=== PATIENT | female | born 1985 | race Caucasian/White ===

== ENCOUNTER 2020-04-17 11:17 | Emergency (ER) | payer OTHER, MEDICAID, SELFPAY ==
[2020-04-17 11:20] VITALS: BP 129/72; PULSE 79; RESP 14; TEMP 37; O2SAT 99; BMI 24.5
[2020-04-17 11:31] VITALS: PULSE 84; O2SAT 99
--- NOTE | 2020-04-17 11:36 | ED_ITS ---
HPI - Abdominal Pain General Chief Complaint: Abdominal Pain Stated Complaint: severe left lower back/across abd/fatigue x3days Time Seen by Provider: 04/17/20 11:20 Source: patient Mode of arrival: Ambulatory Limitations: no limitations History of Present Illness HPI narrative: Patient is a 34-year-old female with no past medical history presenting with of left back pain. She says it is not radiating around her abdomen or to her leg. However she is feeling like she is having some lower abdominal pain and bloating as well. She just had her menstrual cycle does not feel like it is related to that. She has been nauseous at times but no vomiting no fever. No prior history of kidney stones. She denies any urinary frequency or dysuria. She states she took ibuprofen 2 days ago without any relief. She says is quite painful. She says she has had normal bowel movements no bloody stools. MD complaint: abdominal pain Onset (ago): day(s) (3) Pain Consistency: constant Quality: stabbing Related Data Home Medications Medication Instructions Recorded Confirmed VIT#96/FERROUS FUM/FA 1 tab PO Q DAY #0 12/17/10 ( Tablet) Previous Rx's Medication Instructions Recorded ciprofloxacin HCl [Cipro] 500 mg PO BID #14 tab 04/17/20 metronidazole [Flagyl] 500 mg PO Q8H #21 tab 04/17/20 Allergies Allergy/AdvReac Type Severity Reaction Status Date / Time acetaminophen [From Tylenol] Allergy Verified 04/17/20 11:25 Review of Systems Review of Systems Narrative: GENERAL: Denies chills, fatigue, malaise, fever, sweats, travel HEENT: Denies sinus pain, ear pain, sore throat, difficulty swallowing, neck pain RESPIRATORY: Denies dyspnea, cough, wheezing, hemoptysis, sputum. CARDIOVASCULAR: Denies chest pain, palpitations, orthopnea, edema GASTROINTESTINAL: See HPI : Denies dysuria, frequency, incontinence, hematuria, urinary retention, flank pain. MUSCULOSKELETAL: Denies weakness, joint pain, or bony pain SKIN: No rash, no erythema, no pruritus NEUROLOGIC: Denies weakness, dizziness, headache, numbness, change in speech, confusion PSYCHIATRIC: No concerning psychosocial issues. 12 point review of systems is negative except for those stated above and HPI Patient History Medical History Patient denies medical problems Social History Smoking Status: Unknown if ever smoked Smoking Status: Unknown if ever smoked alcohol intake frequency: holidays/special occasions only Substance Use Type: does not use Exam Initial Vital Signs Initial Vital Signs: Vital Signs Temperature 98.6 F 04/17/20 11:20 Pulse Rate 79 04/17/20 11:20 Respiratory Rate 14 04/17/20 11:20 Blood Pressure 129/72 04/17/20 11:20 Pulse Oximetry 99 04/17/20 11:20 GENERAL: Well-appearing, well-nourished and in no acute distress. HEENT: Head atraumatic,EOMI, pupils reactive, face symmetric, moist mucous membranes CARDIOVASCULAR: Regular rate and rhythm without murmurs, rubs or gallops. RESPIRATORY: Breath sounds equal bilaterally, no wheezes rales or rhonchi. ABDOMEN: Soft, mild left lower quadrant pain. Normoactive bowel sounds all 4 quadrants. No guarding or rebound. : Mild left CVA tenderness EXTREMITIES: Normal range of motion, no clubbing or edema. Neurovascularly intact NEUROLOGICAL: Alert and oriented x4.Normal gait and speech. SKIN: Warm, dry, no laceration, no petechiae, no rashes or lesions. Course Orders Ordered: ED Orders 04/17/20 11:25 Complete Blood Count AUTO DIFF Stat Comprehensive Metabolic Panel Stat Lipase Stat Partial Thromboplastin Time Stat Prothrombin Time INR Stat 04/17/20 11:37 CT abdomen pelvis w con Stat Discontinued Medications Ketorolac Tromethamine (Ketorolac 60 Mg/2 Ml Vial) 30 mg IV NOW ONE Stop: 04/17/20 11:38 Last Admin: 04/17/20 11:51 Dose: 30 mg Documented by: [email or web address] Vital Signs Vital signs: Vital Signs - 8 hr 04/17/20 12:20 04/17/20 12:30 Pulse Rate 89 70 Blood Pressure 118/58 L 115/59 L Pulse Oximetry 96 99 MDM - Abdominal Pain Lab Data Attestation: I reviewed the patient's lab results. Result diagrams: 04/17/20 11:25 04/17/20 11:25 Labs: Lab Results 04/17/20 04/17/20 04/17/20 Range/Units 11:25 11:25 11:25 WBC 6.7 (4.5-11.0) X10^3/uL RBC 4.75 (4.0-5.2) X10^6/uL Hgb 13.9 (12.0-16.0) g/dL Hct 41.9 (36-46) % MCV 88.3 (80-100) fL MCH 29.3 (26-34) PG MCHC 33.2 (30-36) % RDW 13.0 (11.6-14.8) % Plt Count 245 (150-400) X10^3/uL Neut % (Auto) 57.1 (50-75) % Lymph % (Auto) 28.4 (25-40) % [place] % (Auto) 11.6 (3-14) % Eos % (Auto) 2.5 (2-4) % Baso % (Auto) 0.4 (0-2) % Neut # (Auto) 3800 (8836-1213) /uL Lymph # (Auto) 1900 (0245-4481) /uL [place] # (Auto) 800 (0-900) /uL Eos # (Auto) 200 (0-450) /uL Baso # (Auto) 0 (0-100) /uL PT 11.6 (10.1-12.7) SECONDS INR 1.0 (0.9-1.3) APTT 32 (26.4-36.2) SECONDS Sodium 137 (137-145) mmol/L Potassium 4.6 (3.4-5.1) mmol/L Chloride 103 (98-107) mmol/L Carbon Dioxide 27 (22-32) mmol/L BUN 11 (7-17) mg/dL Creatinine 0.71 (0.52-1.04) mg/dL Estimated GFR > 60.0 (>60) mL/min BUN/Creatinine Ratio 15.5 (6-22) Glucose 99 (70-100) mg/dL Calcium 9.7 (8.4-10.2) mg/dL Total Bilirubin 0.5 (0.2-1.3) mg/dL AST 55 H (14-36) IU/L ALT 44 H (<35) IU/L Alkaline Phosphatase 49 (38-126) U/L Total Protein 8.8 H (6.3-8.2) g/dL Albumin 4.9 (3.5-5.0) g/dL Globulin 3.9 (1.7-4.1) g/dL Albumin/Globulin Ratio 1.3 (1.0-2.8) Lipase 70 (23-300) U/L Point of care testing: Point of Care Testing Test Results Negative Urine Dip Bedside Urine Glucose Negative Bedside Urine Bilirubin - Negative Bedside Urine Ketone - Negative Urine Specific [place] 1.010 Bedside Urine Occult Blood - Negative Bedside Urine pH 6 Bedside Urine Protein - Negative Bedside Urine Urobilinogen - Negative Bedside Urine Nitrite - Negative Bedside Urine Leukocytes - Negative Esterase Imaging Data CT scan - abdomen/pelvis: Radiologist's Impression: PROCEDURE: CT ABDOMEN PELVIS W CON INDICATIONS: LLq pain TECHNIQUE: After the administration of intravenous contrast, 5 mm thick sections acquired from the diaphragm to the symphysis. 5 mm coronal and sagittal reformats were acquired. For radiation dose reduction, the following was used: automated exposure control, adjustment of mA and/or kV according to patient size. COMPARISON: None. FINDINGS: Image quality: Excellent. ABDOMEN: Lung bases: Lung bases are clear. Heart size is normal. Solid organs: Liver is normal in size and enhancement. Gallbladder is within normal limits. Biliary system is non dilated. Pancreas enhances normally. Spleen is normal in size and enhancement. No adrenal nodules. Kidneys demonstrate normal size and enhancement, without hydronephrosis. Peritoneum and bowel: There is no evidence of bowel obstruction. There is suggestion of diffuse descending colon wall thickening and edema with minimal pericolonic fat stranding. Appendix is visualized and is within normal limits. No peritoneal free fluid or free air. No abscess collection. Nodes and vessels: No retroperitoneal or mesenteric adenopathy by size criteria. Aorta and inferior vena cava are normal in size. Miscellaneous: No ventral hernias. PELVIS: Genitourinary: Bladder wall thickness is normal. Intrauterine device is noted within uterus. Suggestion of a right ovarian cyst is seen measures 2.3 cm in size. Miscellaneous: No inguinal hernias or adenopathy. Bones: No suspicious bony lesions. No vertebral body compression fractures. IMPRESSION: 1. Finding is suggestive of left-sided colitis involving descending colon. No evidence of acute appendicitis or diverticulitis. No free fluid or free air. No abscess collection. 2. Intrauterine device in place. 2.2 cm right ovarian cyst. Dictated by: Norman Oconnor M.D. on 04/17/2020 at 12:24 MDM Narrative Medical decision making narrative: At this time patient well no significant leukocytosis or fever. Discussed possibly waiting a couple days on antibiotics before starting them to see if she improves without them. He is agreeable to this will write her prescriptions for Cipro and Flagyl. Discharge Plan Departure Patient Disposition: Home Clinical Impression: Colitis Instructions: DI for Colitis Activity Restrictions/Additional Instructions: *You have been diagnosed with colitis *What to do: At this time he may hold off for a day or 2 on the antibiotics to see if her symptoms improve. If symptoms are not improving recommend starting antibiotics. I also recommend decreasing your fiber over the next few days until symptoms improve and then returning to your regular diet as symptoms in for *Continue to take medications as directed Cipro 500 mg twice a day for 7 days Flagyl 500 mg 3 times a day for 7 days Ibuprofen 800 mg every 8 hours if needed for [id number] pain *Follow up with your primary care provider in 2-3 days *Return to ER if you should have intense severe pain, nausea, vomiting, bloody stools, fever or any new, worsening or concerning symptoms Prescriptions: New ciprofloxacin HCl [Cipro] 500 mg tablet 500 mg PO BID Qty: 14 RF: 0 metronidazole [Flagyl] 500 mg tablet 500 mg PO Q8H Qty: 21 RF: 0 No Action VIT#96/FERROUS FUM/FA ( Tablet) 1 tab PO Q DAY Qty: 0 RF: 0 Referrals: Stefani Jay ARNP [Primary Care Provider] -
[2020-04-17 11:37] LABS: Add Manual Diff / Slide Review NO; Basophils Absolute Auto 0 /uL (0-100); Basophils Percent Auto 0.4 % (0-2); Eosinophils Absolute Auto 200 /uL (0-450); Eosinophils Percent Auto 2.5 % (2-4); Hematocrit 41.9 % (36-46); Hemoglobin 13.9 g/dL (12.0-16.0); Lymphocytes Absolute Auto 1900 /uL (1100-4500); Lymphocytes Percent Auto 28.4 % (25-40); Mean Corpuscular HGB Conc 33.2 % (30-36); Mean Corpuscular Hemoglobin 29.3 PG (26-34); Mean Corpuscular Volume 88.3 fL (80-100); Monocytes Absolute Auto 800 /uL (0-900); Monocytes Percent Auto 11.6 % (3-14); Neutrophils Absolute Auto 3800 /uL (1500-7000); Neutrophils Percent Auto 57.1 % (50-75); Platelet Count 245 X10^3/uL (150-400); Red Blood Cell Count 4.75 X10^6/uL (4.0-5.2); White Blood Cell Count 6.7 X10^3/uL (4.5-11.0)
[2020-04-17 11:48] LABS: Prothrombin Time 11.6 SECONDS (10.1-12.7)
[2020-04-17 11:50] VITALS: BP 129/54; PULSE 77; O2SAT 99
[2020-04-17 11:50] LABS: Alanine Aminotransferase 44 IU/L (<35); Albumin 4.9 g/dL (3.5-5.0); Albumin Globulin Ratio 1.3 (1.0-2.8); Alkaline Phosphatase 49 U/L (38-126); Aspartate Aminotransferase 55 IU/L (14-36); BUN Creatinine Ratio 15.5 (6-22); Bilirubin Total 0.5 mg/dL (0.2-1.3); Blood Urea Nitrogen 11 mg/dL (7-17); Calcium 9.7 mg/dL (8.4-10.2); Carbon Dioxide 27 mmol/L (22-32); Chloride 103 mmol/L (98-107); Estimated Glomerular Filt Rate > 60.0 mL/min (>60); Globulin 3.9 g/dL (1.7-4.1); Glucose 99 mg/dL (70-100); HEMOLYSIS 59 (0-50); Lipase 70 U/L (23-300); Potassium 4.6 mmol/L (3.4-5.1); Sodium 137 mmol/L (137-145); Total Protein 8.8 g/dL (6.3-8.2)
[2020-04-17 11:51] LABS: PTT Partial Thromboplastin Tim 32 SECONDS (26.4-36.2)
[2020-04-17] MEDS: KETOROLAC 60 MG/2 ML VIAL 30 MG IV (11:51)
[2020-04-17 12:00] VITALS: BP 120/58; PULSE 76; O2SAT 98
[2020-04-17 12:20] VITALS: BP 118/58; PULSE 89; O2SAT 96
[2020-04-17 12:30] VITALS: BP 115/59; PULSE 70; O2SAT 99
== END 2020-04-17 13:13 | disposition home or self-care (01) ==
PROVIDERS: Emergency Provider Emergency Medicine; Family Provider Obstetrics & Gynecology; PCP Nurse Practitioner
DX: K52.9 Noninfective gastroenteritis and colitis, unspecified (principal); R10.32 Left lower quadrant pain
CPT/HCPCS: 36415; 74177; 80053; 81003; 81025; 83690; 85025; 85610; 85730; 96374; 99281; 99284; J1885

== ENCOUNTER → 2020-05-17 12:55 | Outpatient (CLI) | payer OTHER, MEDICAID, SELFPAY ==
[2020-05-17 13:34] LABS: Add Manual Diff / Slide Review NO; Basophils Absolute Auto 100 /uL (0-100); Basophils Percent Auto 0.6 % (0-2); Eosinophils Absolute Auto 200 /uL (0-450); Eosinophils Percent Auto 2.4 % (2-4); Hematocrit 39.1 % (36-46); Hemoglobin 13.2 g/dL (12.0-16.0); Lymphocytes Absolute Auto 2300 /uL (1100-4500); Lymphocytes Percent Auto 26.5 % (25-40); Mean Corpuscular HGB Conc 33.7 % (30-36); Mean Corpuscular Hemoglobin 29.6 PG (26-34); Mean Corpuscular Volume 87.8 fL (80-100); Monocytes Absolute Auto 800 /uL (0-900); Monocytes Percent Auto 9.4 % (3-14); Neutrophils Absolute Auto 5200 /uL (1500-7000); Neutrophils Percent Auto 61.1 % (50-75); Platelet Count 252 X10^3/uL (150-400); Red Blood Cell Count 4.46 X10^6/uL (4.0-5.2); Red Cell Distribution Width 13.1 % (11.6-14.8); White Blood Cell Count 8.5 X10^3/uL (4.5-11.0)
[2020-05-17 14:04] LABS: Alanine Aminotransferase 40 IU/L (<35); Albumin 4.7 g/dL (3.5-5.0); Albumin Globulin Ratio 1.6 (1.0-2.8); Alkaline Phosphatase 50 U/L (38-126); Aspartate Aminotransferase 45 IU/L (14-36); BUN Creatinine Ratio 16.2 (6-22); Bilirubin Total 0.3 mg/dL (0.2-1.3); Blood Urea Nitrogen 12 mg/dL (7-17); Calcium 9.6 mg/dL (8.4-10.2); Carbon Dioxide 22 mmol/L (22-32); Chloride 105 mmol/L (98-107); Estimated Glomerular Filt Rate > 60.0 mL/min (>60); Glucose 75 mg/dL (70-100); HEMOLYSIS < 15 (0-50); Potassium 3.9 mmol/L (3.4-5.1); Sodium 139 mmol/L (137-145); Total Protein 7.7 g/dL (6.3-8.2)
== END ==
PROVIDERS: Family Provider Obstetrics & Gynecology; PCP Nurse Practitioner; Referring Provider Physician Assistant; Visit Provider Physician Assistant
DX: K62.5 Hemorrhage of anus and rectum (principal)
CPT/HCPCS: 36415; 80053; 85025

== ENCOUNTER 2021-03-26 18:52 | Emergency (ER) | payer OTHER, MEDICAID, SELFPAY ==
[2021-03-26 19:08] VITALS: BP 136/73; PULSE 91; RESP 20; TEMP 37.1; O2SAT 100
--- NOTE | 2021-03-26 19:35 | ED.URI ---
HPI - URI/Sore Throat <DAVIAN Noonan - Last Filed: 03/26/21 20:24> General Chief Complaint: Upper Respiratory Symptoms Stated Complaint: COVID POSITIVE DEHYDRATION VERY ILL Time Seen by Provider: 03/26/21 19:25 Source: patient Mode of arrival: Ambulatory History of Present Illness HPI Narrative: 35-year-old female unvaccinated for COVID, who tested COVID x3 days presents to the emergency department complaining that she cannot speak, swallow, breathe, drink water due to her pain in her throat. Patient is tearful, states she is very ill in very dehydrated. She denies any fever, nausea vomiting, diarrhea, chest pain, shortness of breath, wheezing, or other symptom. Patient is communicating via typing on her cellphone. She states that 48 hours ago her throat started to hurt and it has become so severe she is concerned that she can not breathe. No audible stridor, patient is refusing to speak, she will whisper and then states is too painful to talk and starts crying. Related Data Home Medications Medication Instructions Recorded Confirmed VIT#96/FERROUS FUM/FA 1 tab PO Q DAY #0 12/17/10 ( Tablet) Previous Rx's Medication Instructions Recorded ciprofloxacin HCl 500 mg tablet 500 mg PO BID #14 tab 04/17/20 (Cipro) metronidazole 500 mg tablet 500 mg PO Q8H #21 tab 04/17/20 (Flagyl) Allergies Allergy/AdvReac Type Severity Reaction Status Date / Time acetaminophen [From Tylenol] Allergy Verified 04/17/20 11:25 Review of Systems <DAVIAN Noonan - Last Filed: 03/26/21 20:24> Review of Systems Narrative: General: denies fever, chills, malaise, sweats, fatigue Head/Neck: denies headache, neck pain, dizziness, endorses sore throat Eyes: denies visual changes, eye pain Cardio: denies chest pain, palpitations, edema Respiratory: denies dyspnea, cough, orthopnea GI: denies abdominal pain, nausea, vomiting, or diarrhea : denies dysuria, hematuria, urinary retention, frequency or incontinence MSK: denies joint pain, muscle weakness Skin: denies rash, itching, skin lesions or other Neuro: denies numbness, tingling Patient History <DAVIAN Noonan - Last Filed: 03/26/21 20:24> Medical History Patient denies medical problems Social History Smoking Status: Unknown if ever smoked Smoking Status: Unknown if ever smoked alcohol intake frequency: holidays/special occasions only Substance Use Type: does not use Exam <DAVIAN Noonan - Last Filed: 03/26/21 20:24> Narrative Exam Narrative: Independently reviewed vitals signs and nursing notes. General: Cooperative, comfortable, in no acute distress, well developed and well groomed Head/Neck: Normal visual inspection and supple, atraumatic, no JVD or lymphadenopathy. Normal facial exam Eyes: Pupils equal round and reactive, EOMI, conjunctiva normal, no scleral icterus or injections Nose: External nose normal, nares patent, no rhinorrhea, without purulent drainage Mouth/Throat: uvula midline, moist mucus membranes, posterior pharynx is not erythematous, no tonsillar adenopathy, no exudate, lesions, vesicles. Mild cobblestoning noted to posterior pharynx and postnasal drip Cardio: Regular rate and rhythm, no peripheral edema, warm extremities Respiratory: Normal respiratory effort, able to speak in complete sentences without audible wheezing, stridor, or rales. No retractions. Breath sounds clear in all serrato GI: Abdomen soft, nontender to palpation x4 quadrants, nondistended, no masses or exquisite tenderness with exam, no flank tenderness MSK: Moves all extremities, neurovascularly intact Skin: Normal capillary refill, no rash Neuro: Normal speech and cognition, normal gait, A&O x3, tone normal, moves all extremities Psych: Mental status is grossly normal, speech is clear, congruent mood, normal affect Initial Vital Signs Initial Vital Signs: Vital Signs Temperature 98.7 F 03/26/21 19:08 Pulse Rate 91 H 03/26/21 19:08 Respiratory Rate 20 03/26/21 19:08 Blood Pressure 136/73 03/26/21 19:08 Pulse Oximetry 100 03/26/21 19:08 <Syed Hugo DO - Last Filed: 03/27/21 07:07> Initial Vital Signs Initial Vital Signs: Vital Signs Temperature 98.7 F 03/26/21 19:08 Pulse Rate 91 H 03/26/21 19:08 Respiratory Rate 20 03/26/21 19:08 Blood Pressure 136/73 03/26/21 19:08 Pulse Oximetry 100 03/26/21 19:08 Course <BILL NoonanP - Last Filed: 03/26/21 20:24> Orders Ordered: Discontinued Medications Dexamethasone (Dexamethasone 10 Mg/Ml Vial) 10 mg PO NOW ONE Stop: 03/26/21 19:34 Last Admin: 03/26/21 19:56 Dose: 10 mg Documented by: [email or web address] Ibuprofen (Ibuprofen Susp 100 Mg/5 Ml Udc) 600 mg PO NOW ONE Stop: 03/26/21 19:35 Last Admin: 03/26/21 19:56 Dose: 600 mg Documented by: [email or web address] Lidocaine HCl (Lidocaine Viscous 2% 15 Ml Solution) 15 ml PO NOW ONE Stop: 03/26/21 19:36 Last Admin: 03/26/21 19:57 Dose: 15 ml Documented by: [email or web address] Vital Signs Vital signs: Vital Signs - 8 hr 03/26/21 19:08 Temperature 98.7 F Pulse Rate 91 H Respiratory Rate 20 Blood Pressure 136/73 Pulse Oximetry 100 <Syed Hugo DO - Last Filed: 03/27/21 07:07> Orders Ordered: Discontinued Medications Dexamethasone (Dexamethasone 10 Mg/Ml Vial) 10 mg PO NOW ONE Stop: 03/26/21 19:34 Last Admin: 03/26/21 19:56 Dose: 10 mg Documented by: [email or web address] Ibuprofen (Ibuprofen Susp 100 Mg/5 Ml Udc) 600 mg PO NOW ONE Stop: 03/26/21 19:35 Last Admin: 03/26/21 19:56 Dose: 600 mg Documented by: [email or web address] Lidocaine HCl (Lidocaine Viscous 2% 15 Ml Solution) 15 ml PO NOW ONE Stop: 03/26/21 19:36 Last Admin: 03/26/21 19:57 Dose: 15 ml Documented by: [email or web address] Vital Signs Vital signs: Vital Signs - 8 hr 03/26/21 19:08 Temperature 98.7 F Pulse Rate 91 H Respiratory Rate 20 Blood Pressure 136/73 Pulse Oximetry 100 MDM - URI/Sore Throat <Brittany Jade, [facility] - Last Filed: 03/26/21 20:24> [facility] Narrative Medical decision making narrative: 35-year-old female presents to the emergency department complaining of sore throat, worst of her life, she states she cannot breathe, swallow, drink water, or eat food due to the pain. Patient is COVID positive, symptoms started 3 days ago, she said for 48 hours her throat has been very painful and she has not been able to drink water or eat food. She has taken liquid ibuprofen twice today and tolerated that well. Patient does not have a fever, no nausea vomiting, no stridor, breath sounds are clear times all lobes, posterior pharynx without erythema or edema, uvula midline, no exudate, mild postnasal drip noted. Patient was given viscous lidocaine, she gargled this, and then was able to take liquid Motrin, and p.o. challenge. Patient requesting something for her throat swelling and pain. I discussed with her that steroids are not recommended due to her acute COVID status without hypoxia due to increased morbidity and mortality. She states that she cannot go home like this, she says swallowing is too painful and she states she can not breathe. Again, no audible stridor, no difficulty swallowing, patient was able to p.o. challenge, she was educated on the risks of steroids, but requests having them despite the risks. She requests IV fluids for hydration but I discussed this is not likely helpful because she can tolerate p.o. fluid and it would not stay in her vascular system very long. She understands this, recommend close follow-up with PCP, and to continue quarantine for as long as her symptoms are severe and at least 5 days since her onset. Patient is appropriate and amenable to discharge home. Vital signs are stable on repeat examination is unremarkable. Patient has been informed of results. Patient has been given strict return to ER precautions for any new or worsening symptoms. Patient understands to follow up closely with outpatient providers as instructed. Patient understands plan and agrees to discharge home. All questions and concerns answered at this time. Discharge Plan Departure Patient Disposition: Home Clinical Impression: COVID-19 Pharyngitis, acute Qualifiers: Pharyngitis/tonsillitis etiology: unspecified etiology Qualified Code(s): J02.9 - Acute pharyngitis, unspecified Instructions: Viral Pharyngitis, DI for Pharyngitis/Tonsillopharyngitis -- Adult, DI for COVID-19 (Suspected or Confirmed ) Activity Restrictions/Additional Instructions: *You have been diagnosed with pharyngitis due to COVID-19. Please continue to have small sips, ice drinks, liquid shakes and smoothies as needed for throat pain. This will most likely start to improve over the next 12 hours. Please note that there are risks along with medications like your steroid that he received today. If you have difficulty breathing, worsening of your symptoms, are unable to keep anything down, or noisy breathing please return to the emergency department for another evaluation. I hope you feel better soon, please try and stay hydrated at home and continue your quarantine. For congestion symptoms please try decongestants like Sudafed or pseudoephedrine syrup from behind the counter, Robitussin syrup, Benadryl syrup, NyQuil or DayQuil as needed. For sore throat please try tea with honey when you are able, the honey is a natural topical pain reliever. Please remember to take ibuprofen every 6 hours as needed for your pain. This will start to get better the next day or two. Popsicles, smoothies, iced drinks should all help keep you hydrated. I hope you feel better soon. *What to do: *Please continue to take your regular medications as directed. [ ] New medication prescriptions sent to your pharmacy: [ ] [ ] New medication written as a paper prescription [ x] No new medications given *Please follow up with your primary care provider in 2-3 days, call for an appointment. Let them know you were seen in the Emergency Department and that we ask that you be seen in follow up. We will electronically transmit a record of today's note if your PCP is in our system *If you do not have a primary care provider please contact the [facility] Resource line at [phone]. They will ask some questions about your medical history and help get you set up with a doctor in the community. *Return to Emergency Department if you should have any new, worsening or concerning symptoms, such as [fever greater than 101F, chills, worsening pain, persistent vomiting or other bothersome symptoms] Prescriptions: No Action VIT#96/FERROUS FUM/FA ( Tablet) 1 tab PO Q DAY Qty: 0 0RF ciprofloxacin HCl [Cipro] 500 mg tablet 500 mg PO BID Qty: 14 0RF metronidazole [Flagyl] 500 mg tablet 500 mg PO Q8H Qty: 21 0RF Referrals: Stefani Jay ARNP [Primary Care Provider] - <Syed Hugo DO - Last Filed: 03/27/21 07:07> Cosign ED Attending Cosignature Attestation: Dr Hugo Co-Sign Statement: I was available for consultation during this patient's emergency department visit. This chart is signed by myself for administrative purposes only. I did not have direct contact with this patient during this visit. They were seen independently by the APC.
[2021-03-26] MEDS: IBUPROFEN SUSP 100 MG/5 ML UDC 600 MG PO (19:56)
[2021-03-26] MEDS: DEXAMETHASONE 10 MG/ML VIAL PO (19:56)
[2021-03-26] MEDS: LIDOCAINE VISCOUS 2% 15 ML SOLUTION PO (19:57)
--- NOTE | 2021-03-26 20:18 | PC.NURSE ---
Boyfriend asked to speak to me. He is covid + and has been asked to stay out of the hospital x 3. I asked him again to do so. I did answer his questions regarding pt discharge instructions. I generally answered questions as to why / why not a pt would need IVF.
[2021-03-26 20:32] VITALS: BP 134/74; PULSE 77; RESP 18; O2SAT 97
== END 2021-03-26 20:33 | disposition home or self-care (01) ==
PROVIDERS: Emergency Provider Nurse Practitioner Critical Care Medicine; Family Provider Obstetrics & Gynecology; PCP Nurse Practitioner
DX: U07.1 COVID-19 (principal); J02.9 Acute pharyngitis, unspecified
CPT/HCPCS: 99283; J1100